=== PATIENT | female | born 1945 | race Caucasian/White ===

== ENCOUNTER 2021-05-17 21:52 | Emergency (ER) | payer MEDICARE ==
[~2021-05-17] VITALS: Ht 154.9 cm; Wt 53.6 kg
[2021-05-17 22:08] VITALS: TEMP 98.7
[2021-05-17] MEDS ORDERED: PERCOCET 325 MG1 TA2 PO (23:48)
[2021-05-18 00:03] VITALS: BP 134/70; PULSE 71
== END 2021-05-18 00:05 | disposition home or self-care (01) ==
LOC: COL.ER 21:52
DX: S42.402A Unspecified fracture of lower end of left humerus, initial encounter for closed fracture (principal); S30.0XXA Contusion of lower back and pelvis, initial encounter; W01.198A Fall on same level from slipping, tripping and stumbling with subsequent striking against other object, initial encounter